=== PATIENT | male | born 1935 | race American Indian/Alaskan Native ===

== ENCOUNTER 2018-07-05 17:03 | Emergency (ER) | payer MEDICARE, MEDICAID, OTHER ==
[~2018-07-05] VITALS: Ht 175.3 cm; Wt 97.5 kg
--- OUTSIDE RECORDS SUMMARY | ~2018-07-05 | XMS | Clinical Summary ---
Demographics + + + | Address | [address] | | | [place] [address] | + + + | Home Phone | | + + + | Preferred Language | Unknown | + + + | Marital Status | | + + + | Moravian Affiliation | Unknown | + + + | Race | Unknown | + + + | Ethnic Group | Unknown | + + + Author + + + | Author | [facility] | | | and [place] | + + + | Organization | [facility] | | | and [place] | + + + | Address | Unknown | + + + | Phone | Unavailable | + + + Support + + +---------+ + | Name | Relationship | Address | Phone | + + +---------+ + | Whitley Jaime | ECON | Unknown | | + + +---------+ + Care Team Providers + +------+ + | Care Crown Blocker Name | Role | Phone | + +------+ + | Pcp, Prov Inactive | PP | | + +------+ + Allergies No Known Allergies Current Medications + + +---------+---------+------+------+-------+ | Prescription | Sig. | Disp. | Refills | Star | End | Statu | | | | | | t | Date | s | | | | | | Date | | | + + +---------+---------+------+------+-------+ | omeprazole | Take 20 mg by mouth | | | | | Activ | | (PRILOSEC) 20 mg | Daily as needed. | | | | | e | | TBEC | | | | | | | + + +---------+---------+------+------+-------+ | folic acid 1 mg | Take 1 mg by mouth | | | | | Activ | | tablet | Daily. | | | | | e | + + +---------+---------+------+------+-------+ | VITAMIN D, | | | | | | Activ | | CHOLECALCIFEROL, PO | | | | | | e | + + +---------+---------+------+------+-------+ | zolpidem (AMBIEN) | Take 10 mg by mouth | | | | | Activ | | 10 mg tablet | nightly as needed. | | | | | e | + + +---------+---------+------+------+-------+ | sitaGLIPtin | Take 100 mg by mouth | | | | | Activ | | (JANUVIA) 100 mg | Daily. | | | | | e | | tablet | | | | | | | + + +---------+---------+------+------+-------+ | glipiZIDE | Take 10 mg by mouth | | | | | Activ | | (GLUCOTROL XL) 10 MG | Daily. | | | | | e | | 24 hr tablet | | | | | | | + + +---------+---------+------+------+-------+ | | Take 1 tablet by | | | | | Activ | | HYDROcodone-acetamin | mouth every 4 hours | | | | | e | | ophen (NORCO) 5-325 | as needed. | | | | | | | mg per tablet | | | | | | | + + +---------+---------+------+------+-------+ | ascorbic acid | Take 1 tablet by | | | | | Activ | | (VITAMIN C) 500 mg | mouth twice daily | | | | | e | | tablet | with meals | | | | | | + + +---------+---------+------+------+-------+ | docusate sodium | Take 1 capsule by | | | | | Activ | | (COLACE) 100 mg | mouth twice daily | | | | | e | | capsule | with meals | | | | | | + + +---------+---------+------+------+-------+ | pioglitazone | Take 30 mg by mouth | | | | | Activ | | (ACTOS) 30 MG tablet | Daily. | | | | | e | + + +---------+---------+------+------+-------+ | ferrous sulfate | Take 1 tablet by | | | | | Activ | | (FEOSOL) 325 mg | mouth twice daily | | | | | e | | tablet | with meals | | | | | | + + +---------+---------+------+------+-------+ | tamsulosin | Take 0.4 mg by mouth | | | | | Activ | | (FLOMAX) 0.4 mg CAPS | Daily. | | | | | e | + + +---------+---------+------+------+-------+ | rosuvastatin | Take 40 mg by mouth | | | | | Activ | | (CRESTOR) 40 MG | Daily. | | | | | e | | tablet | | | | | | | + + +---------+---------+------+------+-------+ | metoprolol (TOPROL | Take 100 mg by mouth | | | | | Activ | | XL) 100 MG 24 hr | Daily. | | | | | e | | tablet | | | | | | | + + +---------+---------+------+------+-------+ | Loratadine | Take 10 mg by mouth | | | | | Activ | | (CLARITIN) 10 MG | Daily as needed. | | | | | e | | CAPS | | | | | | | + + +---------+---------+------+------+-------+ | aspirin 81 mg | Take 81 mg by mouth | | | | | Activ | | chewable tablet | Daily. | | | | | e | + + +---------+---------+------+------+-------+ | cyanocobalamin | Take 500 mcg by | | | | | Activ | | (VITAMIN B-12) 500 | mouth 2 times daily. | | | | | e | | mcg tablet | | | | | | | + + +---------+---------+------+------+-------+ | diphenhydrAMINE | Take 25 mg by mouth | | | | | Activ | | (BENADRYL) 25 mg | nightly as needed. | | | | | e | | tablet | | | | | | | + + +---------+---------+------+------+-------+ | exenatide (BYETTA) | Inject 5 mcg under | | | | | Activ | | 5 mcg/0.02 mL | the skin 2 times | | | | | e | | injection | daily (before | | | | | | | | meals). | | | | | | + + +---------+---------+------+------+-------+ | nortriptyline | 3 capsule by mouth | 90 | 2 | 07/0 | | Activ | | (PAMELOR) 10 MG | at bedtime | capsule | | 3/20 | | e | | capsule | | | | 14 | | | + + +---------+---------+------+------+-------+ | Insulin Glargine | Inject under the | | | | | Activ | | (LANTUS SC) | skin. | | | | | e | + + +---------+---------+------+------+-------+ Active Problems + + + | Problem | Noted Date | + + + | Hypoproliferative anemia (HCC) | 08/03/2014 | + + + | Spondylolisthesis of lumbar region | 03/31/2014 | + + + | Facet arthropathy, lumbar | 03/31/2014 | + + + | DDD (degenerative disc disease), lumbar | 03/31/2014 | + + + | Lumbar spinal stenosis | 09/15/2013 | + + + + + | Overview: L3-4 | + + + + + | Lumbar radiculopathy | 09/15/2013 | + + + + + | Overview: Right L4 | + + Family History + + +------+ + | Medical History | Relation | Name | Comments | + + +------+ + | Cancer | Daughter | | brain | + + +------+ + | Arthritis | Sister | | | + + +------+ + + +------+--------+ + | Relation | Name | Status | Comments | + +------+--------+ + | Daughter | | | | + +------+--------+ + | Sister | | | | + +------+--------+ + Social History + +-------+ +--------+------+ | Tobacco Use | Types | Packs/Day | Years | Date | | | | | Used | | + +-------+ +--------+------+ | Never Smoker | | | | | + +-------+ +--------+------+ + +---+---+---+ | Smokeless Tobacco: | | | | | Never Used | | | | + +---+---+---+ + + +---------+ + | Alcohol Use | Drinks/We | oz/Week | Comments | | | ek | | | + + +---------+ + | No | | | | + + +---------+ + + + + | Sex Assigned at | Date Recorded | | | | + + + | Not on file | | + + + Last Filed Vital Signs + + + + | Vital Sign | Reading | Time Taken | + + + + | Blood Pressure | 150/71 | 09/14/20141320 PDT | + + + + | Pulse | 82 | 09/14/20141320 PDT | + + + + | Temperature | 36.8 C (98.2 F) | 09/14/20141320 PDT | + + + + | Respiratory Rate | 16 | 09/14/20141320 PDT | + + + + | Oxygen Saturation | 96% | 09/14/20141320 PDT | + + + + | Inhaled Oxygen | - | - | | Concentration | | | + + + + | Weight | 107 kg (235 lb 14.3 | 09/14/2014 1321 PDT | | | oz) | | + + + + | Height | 172.7 cm (5' 8") | 03/31/2014 1119 PST | + + + + | Body Mass Index | 35.87 | 09/14/2014 1321 PDT | + + + + Plan of Treatment + + + + + | Health Maintenance | Due Date | Last Done | Comments | + + + + + | Vaccine: | | | | | Dtap/Tdap/Td (1 - | 4 | | | | Tdap) | | | | + + + + + | Vaccine: Zoster (1 | 08/30/198 | | | | of 2) | 5 | | | + + + + + | Vaccine: | | | | | Pneumococcal 65+ | 0 | | | | Low/Medium Risk (1 | | | | | of 2 - PCV13) | | | | + + + + + | Vaccine: Influenza | | | | | (#1) | 8 | | | + + + + + Results Not on filefrom Last 3 Months Insurance + +--------+ +--------+ +---------+ | Payer | Benefi | Subscriber | Type | Phone | Address | | | t Plan | ID | | | | | | / | | | | | | | Group | | | | | + +--------+ +--------+ +---------+ | MEDICARE | MEDICA | [id number] | Medica | [phone] | | | | RE | | re | [phone] | | | | PART A | | | | | | | AND B | | | | | + +--------+ +--------+ +---------+ | [facility] | IHS | [id number] | Indemn | | | | SERVICE | YELLOW | | ity | | | | | HAWK | | | | | + +--------+ +--------+ +---------+ + +--------+ +--------+ + + | Guarantor Name | Accoun | Relation to | Date | Phone | Billing Address | | | t Type | Patient | of | | | | | | | | | | + +--------+ +--------+ + + | SHAJI JAIME | Person | Self [birth year] Home: | [address] | | | [place] | | 1936 | [phone] | [place] [address] | | | randy | | | [phone] | | + +--------+ +--------+ + +
--- OUTSIDE RECORDS SUMMARY | ~2018-07-05 | XMS | Clinical Summary ---
Demographics + + + | Address | [address] | | | [place] [address] | + + + | Home Phone | | + + + | Preferred Language | Unknown | + + + | Marital Status | | + + + | Buddhist Affiliation | Unknown | + + + | Race | Unknown | + + + | Ethnic Group | Unknown | + + + Author + + + | Author | [facility] | + + + | Organization | [facility] | + + + | Address | Unknown | + + + | Phone | Unavailable | + + + Support + + + + + | Name | Relationship | Address | Phone | + + + + + | Perla Albrecht | ECON | [address] | | | | | [place] | | | | | [address] | | + + + + + Care Team Providers + +------+ + | Care Linen Sorter Name | Role | Phone | + [...]
--- OUTSIDE RECORDS SUMMARY | ~2018-07-05 | XMS | Clinical Summary ---
Demographics + + + | Address | [address] | | | [place] [address] | + + + | Home Phone | | + + + | Preferred Language | Unknown | + + + | Marital Status | | + + + | Anglican Affiliation | Unknown | + + + | Race | Unknown | + + + | Ethnic Group | Unknown | + + + Author + + + | Author | [facility] | | | and [place] | + + + | Organization | [facility] | | | and [place] | [...] Team Providers + +------+ + | Care Yard Driver Name | Role | Phone | + [...] +--------+ +---------+ | MEDICARE | MEDICA | [id number] | Medica | [phone] | | | | RE | | re | [phone] | | | | PART A | | | | | | | AND B | | | | | + +--------+ +--------+ +---------+ | [facility] | IHS | [id number] | Indemn | | | | SERVICE [...] | | [place] | | 1936 | [phone] | [place] [address] | | | randy | | | [phone] | | + +--------+ +--------+ + +
--- OUTSIDE RECORDS SUMMARY | ~2018-07-05 | XMS | Clinical Summary ---
Demographics + + + | Address | [address] | | | [place] [address] | + + + | Home Phone | | + + + | Preferred Language | Unknown | + + + | Marital Status | | + + + | Sikhism Affiliation | Unknown | + + + | Race | Unknown | + + + | Ethnic Group | Unknown | + + + Author + + + | Author | [facility] | + + + | Organization | [facility] | + + + | Address | Unknown | + + + | Phone | Unavailable | + + + Support + + + + + | Name | Relationship | Address | Phone | + + + + + | Perla Albrecht | ECON | [address] | | | | | [place] | | | | | [address] | | + + + + + Care Team Providers + +------+ + | Care Harbor Police Lieutenant Name | Role | Phone | + [...]
[~2018-07-05 17:03] MED LIST: ACTOS30 MG PO; ASPIRIN EC81 MG PO; BYETTA5 MCG/0.02 SQ; COLACE100 MG PO; FLOMAX0.4 MG PO; GLIPIZIDE ER10 MG PO; JANUVIA100 MG PO; LASIX20 MG PO; LIPITOR20 MG PO; LIPITOR40 MG PO; LISINOPRIL2.5 MG PO; METOPROLOL SUC100 MG PO; VITAMIN D35000 UNI1 PO
[2018-07-05] MEDS ORDERED: CIPRO500 MG PO (20:49)
[2018-07-05] MEDS ORDERED: TRAMADOL HCL50 MG PO (20:49)
== END 2018-07-05 21:45 | disposition home or self-care (01) ==
LOC: ED 17:03
PROC: 4A0D7LZ Measurement of Urinary Volume, Via Natural or Artificial Opening (ICD-10-PCS; principal; 2018-07-05)
PROC: 0T9B70Z Drainage of Bladder with Drainage Device, Via Natural or Artificial Opening (ICD-10-PCS; 2018-07-05)
DX: N41.0 Acute prostatitis (principal); R33.9 Retention of urine, unspecified; R93.5 Abnormal findings on diagnostic imaging of other abdominal regions, including retroperitoneum; E11.9 Type 2 diabetes mellitus without complications; I10 Essential (primary) hypertension; I25.2 Old myocardial infarction; Z95.1 Presence of aortocoronary bypass graft; Z87.891 Personal history of nicotine dependence; Z79.82 Long term (current) use of aspirin; Z79.84 Long term (current) use of oral hypoglycemic drugs
CPT/HCPCS: 51702; 51798; 74176; 80053; 81001; 83690; 99284-25

== ENCOUNTER 2018-07-15 16:28 | Emergency (ER) | payer MEDICARE, MEDICAID, OTHER ==
[~2018-07-15] VITALS: Ht 175.3 cm; Wt 97.5 kg
--- OUTSIDE RECORDS SUMMARY | ~2018-07-15 | XMS | Clinical Summary ---
Demographics + + + | Address | [address] | | | [place] [address] | + + + | Home Phone | | + + + | Preferred Language | Unknown | + + + | Marital Status | | + + + | Pentecostalism Affiliation | Unknown | + + + | Race | Unknown | + + + | Ethnic Group | Unknown | + + + Author + + + | Author | [facility] | + + + | Organization | [facility] | + + + | Address | Unknown | + + + | Phone | Unavailable | + + + Support + + + + + | Name | Relationship | Address | Phone | + + + + + | Perla Albrecht | ECON | [address] | | | | | [place] | | | | | [address] | | + + + + + Care Team Providers + +------+ + | Care Highway Traffic Control Technician Name | Role | Phone | + +------+ + | Dr. Duc | PP | Unavailable | + +------+ + Allergies Not on File Current Medications Not on file Active Problems Not on file Social History + +-------+ +--------+------+ | Tobacco Use | Types | Packs/Day | Years | Date | | | | | Used | | + +-------+ +--------+------+ | Never Assessed | | | | | + +-------+ +--------+------+ + + + | Sex Assigned at | Date Recorded | | | | + + + | Not on file | | + + + Plan of Treatment Not on file Results Not on filefrom Last 3 Months"
--- OUTSIDE RECORDS SUMMARY | ~2018-07-15 | XMS | Encounter Summary ---
Demographics + + + | Address | [address] | | | [place] [address] | + + + | Home Phone | | + + + | Preferred Language | Unknown | + + + | Marital Status | | + + + | Advent Affiliation | Unknown | + + + | Race | Unknown | + + + | Ethnic Group | Unknown | + + + Author + + + | Author | [facility] | | | and [place] | + + + | Organization | [facility] | | | and [place] | + + + | Address | Unknown | + + + | Phone | Unavailable | + + + Support + + +---------+ + | Name | Relationship | Address | Phone | + + +---------+ + | Whitley Albrecht | ECON | Unknown | | + + +---------+ + Care Team Providers + +------+ + | Care Zinc Miner Blasting Name | Role | Phone | + +------+ + | Pcp, Prov Inactive | PCP | | + +------+ + Reason for Referral Diagnostic/Screening (Routine) + +--------+ + + + + | Status | Reason | Specialty | Diagnoses / | Referred By | Referred To | | | | | Procedures | Contact | Contact | + +--------+ + + + + | Pending | | Radiology | Diagnoses | Blane, | DUSTIN | | Review | | | Benign | BERNICE BarryP | [facility] | | | | | prostatic | [phone] | [facility] | | | | | hyperplasia, | [facility] | MEDICAL | | | | | unspecified | WAY | CENTER [address] | | | | | whether | [place], | [place] | | | | | lower | [place] [address] | [place], | | | | | urinary | Phone: | [place] [address] | | | | | tract | [phone] | Phone: | | | | | symptoms | Fax: | [phone] | | | | | present | [phone] | Fax: | | | | | Procedures | | [phone] | | | | | MRI Prostate | | | | | | | w wo | | | | | | | Contrast | | | + +--------+ + + + + Encounter Details +--------+ + + + + | Date | Type | Department | Care Team | Description | +--------+ + + + + | 07/09/ | Ancillary | [facility] | Asha Arguelles, | Benign prostatic | | 2019 | Orders | MED CTR XRAY [address] | [place] [address] | hyperplasia, | | | | [place] | [address] | unspecified whether | | | | [place] [address] | [place] [address] | lower urinary tract | | | | [phone] | [phone] | symptoms present | | | | | | | +--------+ + + + + Social History + +-------+ +--------+------+ | [...] on file | | + + + as of this encounter Plan of Treatment +--------+ + + + + | Date | Type | Specialty | Care Team | Description | +--------+ + + + + | 07/09/ | Procedure | Radiology | | | | 2019 | Pass | | | | +--------+ + + + + | 07/26/ | Appointment | Radiology | Asha Arguelles, | | | 2018 | | | [place] [address] | | | | | | [address] | | | | | | [place] [address] | | | | | | [phone] | | | | | | | | +--------+ + + + + + +--------+ + + | Name | Priori | Associated Diagnoses | Order Schedule | | | ty | | | + +--------+ + + | MRI Prostate w wo Contrast | Routin | Benign Prostatic | Expected: | | | e | Hyperplasia, | 07/09/2018, Expires: | | | | Unspecified Whether | 07/10/2019 | | | | Lower Urinary Tract | | | | | Symptoms Present | | + +--------+ + + as of this encounter Visit Diagnoses + + | Diagnosis | + + | Benign prostatic hyperplasia, unspecified whether lower urinary tract symptoms present | + +"
--- OUTSIDE RECORDS SUMMARY | ~2018-07-15 | XMS | Clinical Summary ---
Demographics + + + | Address | [address] | | | [place] [address] | + + + | Home Phone | | + + + | Preferred Language | Unknown | + + + | Marital Status | | + + + | Mandaen Affiliation | Unknown | + + + | Race | Unknown | + + + | Ethnic Group | Unknown | + + + Author + + + | Author | [facility] | | | and [place] | + + + | Organization | [facility] | | | and [place] [...] Team Providers + +------+ + | Care Scientific Software Developer Name | Role | Phone | + [...] | Overview: Right L4 | + + Encounters +--------+ + + + + | Date | Type | Specialty | Care Team | Description | +--------+ + + + + | 07/09/ | Ancillary | | Asha Arguelles, | Benign prostatic | | 2019 | Orders | | MANAGER ELECTRONIC | hyperplasia, | | | | | | unspecified whether | | | | | | lower urinary tract | | | | | | symptoms present | +--------+ + + + + from Last 3 Months Family History + + +------+ + | [...] | 107 kg (235 lb 14.3 | 09/14/20141320 PDT | | | oz) | | + + + + | Height | 172.7 cm (5' 8") | 03/31/2014 1119 PST | + + + + | Body Mass Index | 35.87 | 09/14/2014 1321 PDT | + + + + Plan of Treatment +--------+ + + + + | Date | Type | Specialty | Care Team | Description | +--------+ + + + + | 07/09/ | Procedure | | | | | 2018 | Pass | | | | +--------+ + + + + | 07/26/ | Appointment | | Asha Arguelles, | | | 2018 | | | [place] [address] | | | | | | [address] | | | | | | [place] [address] | | | | | | [phone] | | | | | | | | +--------+ + + + + + + + + + | Health Maintenance | Due Date | Last Done | Comments | + + + + + | Vaccine: | | | | | Dtap/Tdap/Td (1 - | 4 | | | | Tdap) | | | | + + + + + | Vaccine: Zoster (1 | | | | | of 2) | [...] | + + + + + | Adult Annual | | | | | Wellness Visit | 9 | | | + + + + [...] +--------+ +---------+ | MEDICARE | MEDICA | [id number] | Medica | [phone] | | | | RE | | re | [phone] | | | | PART A | | | | | | | AND B | | | | | + +--------+ +--------+ +---------+ | [facility] | IHS | [id number] | Indemn | | | | SERVICE [...] | [address] | | | [place]am | | 1936 | [phone] | [place] [address] | | | [place] | | | [phone] | | + +--------+ +--------+ + +
--- OUTSIDE RECORDS SUMMARY | ~2018-07-15 | XMS | Encounter Summary ---
Demographics + + + | Address | [address] | | | [place] [address] | + + + | Home Phone | | + + + | Preferred Language | Unknown | + + + | Marital Status | | + + + | Protestant Affiliation | Unknown | + + + | Race | Unknown | + + + | Ethnic Group | Unknown | + + + Author + + + | Author | [facility] | | | and [place] | + + + | Organization | [facility] | | | and [place] [...] Team Providers + +------+ + | Care Harnessmaker Apprentice Name | Role | Phone | + [...] | | | | | prostatic | [id number] | [facility] | | | | | hyperplasia, | [facility] MEDICAL | | | | | unspecified | WAY | CENTER [address] | | | | | whether | [place], | [place] | | | | | lower | [place] [address] | [place], | | | | | urinary | Phone: | [place] [address] | | | | | tract | [phone] | Phone: | | | | | symptoms | Fax: | [phone] | | | | | present | [phone] | Fax: | | | | | Procedures | | [phone] | | | | | MRI Prostate | | | | | | | w wo | | | | | | | Contrast | | | + +--------+ + + + + Encounter Details +--------+ + + + + | Date | Type | Department | Care Team | Description | +--------+ + + + + | 07/09/ | Ancillary | [facility] | Asha Arguelles, | Benign prostatic | | 2019 | Orders | MED CTR XRAY [address] | DRESSMAKER HELPER [address] | hyperplasia, | | | | [address] [place] | [address] | unspecified whether | | | | [place] [address] | [place] [address] | lower urinary tract | | | | [phone] | [phone] | symptoms present | | | | [...] | | 2018 | | | [place] [address] | | | | | | [address] | | | | | | [place] [address] | | | | | | [phone] | | | | | | | [...]
--- OUTSIDE RECORDS SUMMARY | ~2018-07-15 | XMS | Clinical Summary ---
Demographics + + + | Address | [address] | | | [place] [address] | + + + | Home Phone | | + + + | Preferred Language | Unknown | + + + | Marital Status | | + + + | Islam Affiliation | Unknown | + + + | Race | Unknown | + + + | Ethnic Group | Unknown | + + + Author + + + | Author | [facility] | + + + | Organization | [facility] | + + + | Address | Unknown | + + + | Phone | Unavailable | + + + Support + + + + + | Name | Relationship | Address | Phone | + + + + + | Perla Albrecht | ECON | [address] | | | | | [place] | | | | | [address] | | + + + + + Care Team Providers + +------+ + | Care First Aid Teacher Name | Role | Phone | + [...]
--- OUTSIDE RECORDS SUMMARY | ~2018-07-15 | XMS | Clinical Summary ---
Demographics + + + | Address | [address] | | | [place] [address] | + + + | Home Phone | | + + + | Preferred Language | Unknown | + + + | Marital Status | | + + + | Islam Affiliation | Unknown | + + + | Race | Unknown | + + + | Ethnic Group | Unknown | + + + Author + + + | Author | [facility] | | | and [place] | + + + | Organization | [facility] | | | and [place]ana [...] Team Providers + +------+ + | Care Adult Parole Officer Name | Role | Phone | + [...] | | 2019 | Orders | | ASSISTANT HEALTH EDUCATOR | hyperplasia, | | | | | [...] | | 2018 | | | [place] [address] | | | | | | [address] [address] | | | | | | [place] [address] | | | | | | [phone] | | | | | | | [...] +--------+ +---------+ | MEDICARE | MEDICA | [id number] | Medica | [phone] | | | | RE | | re | [phone] | | | | PART A | | | | | | | AND B | | | | | + +--------+ +--------+ +---------+ | [facility] | IHS | [id number] | Indemn | | | | SERVICE [...] | 1936 | [phone] | [place] [address] | | | [place] | | | [phone] | | + +--------+ +--------+ + +
[~2018-07-15 16:28] MED LIST changes: +CIPRO500 MG PO; +TRAMADOL HCL50 MG PO
--- OUTSIDE RECORDS SUMMARY | 2018-07-15 16:32 | XMS ---
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 Debby VISIT COUNT (12 MO.) 3 [facility] TOTAL 3 NOTE: Visits indicate total known visits. 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 - Personal history of nicotine dependence - Presence of aortocoronary bypass graft - Retention of urine, unspecified 02/06/2018 16:45 [facility] [place] TYPE: Emergency COMPLAINT: - L KNEE PAIN/NO INJURY DIAGNOSES: - Pain in left knee - Personal history of nicotine dependence - 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
[2018-07-15] MEDS ORDERED: LORATADINE10 MG PO (16:45)
[2018-07-15] MEDS ORDERED: LOSARTAN POTASS25 MG PO (16:45)
[2018-07-15] MEDS ORDERED: ROSUVASTATIN CA20 MG PO (16:45)
[2018-07-15] MEDS ORDERED: PANTOPRAZOLE SO20 MG PO (16:46)
== END 2018-07-15 20:12 | disposition home or self-care (01) ==
LOC: ED 16:28
PROC: 4A0D7LZ Measurement of Urinary Volume, Via Natural or Artificial Opening (ICD-10-PCS; principal; 2018-07-15)
DX: R33.9 Retention of urine, unspecified (principal); M54.5 Low back pain; E11.9 Type 2 diabetes mellitus without complications; I10 Essential (primary) hypertension; I25.2 Old myocardial infarction; Z95.1 Presence of aortocoronary bypass graft; Z87.891 Personal history of nicotine dependence; Z79.82 Long term (current) use of aspirin; Z79.899 Other long term (current) drug therapy; Z79.84 Long term (current) use of oral hypoglycemic drugs
CPT/HCPCS: 51798; 99283-25

== ENCOUNTER 2021-08-09 14:07 | Emergency (ER) | payer MEDICARE, MEDICAID, OTHER ==
[~2021-08-09] VITALS: Ht 175.3 cm; Wt 98.0 kg
[~2021-08-09 14:07] MED LIST changes: +CIPROFLOXACIN250 MG PO; +JANUMET XR 50-1 EAC1 PO; +LANTUS SOL100 UNIT/1 SUB-Q; +LORATADINE10 MG PO; +LOSARTAN POTASS25 MG PO; +NORCO 5-325 TA1 EACH PO; +PANTOPRAZOLE SO20 MG PO; +PROSCAR5 MG PO; +ROSUVASTATIN CA20 MG PO
== END 2021-08-09 16:20 | disposition home or self-care (01) ==
LOC: ED 14:07
DX: S01.21XA Laceration without foreign body of nose, initial encounter (principal); S00.11XA Contusion of right eyelid and periocular area, initial encounter; S00.81XA Abrasion of other part of head, initial encounter; S09.90XA Unspecified injury of head, initial encounter; E11.9 Type 2 diabetes mellitus without complications; I10 Essential (primary) hypertension; I25.2 Old myocardial infarction; Z87.891 Personal history of nicotine dependence; Z79.899 Other long term (current) drug therapy; Z79.4 Long term (current) use of insulin; Z79.82 Long term (current) use of aspirin; W22.8XXA Striking against or struck by other objects, initial encounter
CPT/HCPCS: 70450; 99283-25